=== PATIENT | female | born 1955 | race Caucasian/White ===

== ENCOUNTER 2019-12-07 16:10 | Emergency (ER) | payer MEDICAID ==
[~2019-12-07] VITALS: Ht 149.9 cm; Wt 56.0 kg
[2019-12-07] MEDS ORDERED: GABAPENTIN 100MG CAPSULE PO ONE (18:45)
[2019-12-07 19:01] VITALS: BP 156/78
== END 2019-12-07 19:03 | disposition home or self-care (01) ==
LOC: ER 16:10
DX: G50.0 Trigeminal neuralgia (principal); I10 Essential (primary) hypertension; Z98.890 Other specified postprocedural states
CPT/HCPCS: 82962; 99283

== ENCOUNTER 2022-06-22 09:58 | Emergency (ER) | payer MEDICAID ==
[~2022-06-22] VITALS: Ht 144.8 cm; Wt 59.0 kg
[2022-06-22 10:14] VITALS: BP 161/85
[2022-06-22] MEDS ORDERED: ACETAMINOPHEN 325MG TABLET PO STA (10:43)
[2022-06-22] MEDS ORDERED: CLOT15CR27 TP ×3 (11:30→11:36)
[2022-06-22] MEDS ORDERED: NAPR-681 PO ×3 (11:30→11:36)
[2022-06-22] MEDS ORDERED: SULF1TAB48 PO ×3 (11:30→11:36)
== END 2022-06-22 11:59 | disposition home or self-care (01) ==
LOC: ER 10:19
DX: L03.116 Cellulitis of left lower limb (principal); B35.3 Tinea pedis; I10 Essential (primary) hypertension; Z98.890 Other specified postprocedural states
CPT/HCPCS: 73562; 99283

== ENCOUNTER 2022-10-21 15:48 | Emergency (ER) | payer MEDICAID, OTHER ==
[~2022-10-21] VITALS: Ht 165.1 cm; Wt 75.0 kg
[~2022-10-21 15:48] MED LIST: CLOT15CR27 TP; NAPR-681 PO; SULF1TAB48 PO
[2022-10-21 16:27] VITALS: BP 130/83
[2022-10-21] MEDS ORDERED: IBUPROFEN 400MG TABLET PO ONE (20:00)
[2022-10-21] MEDS ORDERED: DEXAMETHASONE 10 MG/ML VIAL IV ONE (20:00)
== END 2022-10-21 23:32 | disposition home or self-care (01) ==
LOC: ER 15:48
DX: R07.0 Pain in throat (principal); I10 Essential (primary) hypertension; E78.00 Pure hypercholesterolemia, unspecified; Z98.51 Tubal ligation status
CPT/HCPCS: 96374; 99283; J1100